=== PATIENT | female | born 1990 ===

== ENCOUNTER 2025-10-13 00:23 | Outpatient (CLI) | payer OTHER, SELFPAY ==
[2025-10-13 13:35] LABS: Abs Immature Grans 0.02 10^3/uL (0.0-0.06); HCT 36.0 % (36.0-46.0); HGB 12.3 g/dL (11.2-15.7); Immature Grans % 0.2 %; MCH 30.1 pg (27.0-33.0); MCHC 34.2 % (32.0-36.0); MCV 88 fL (80-95); MPV 9.2 fL (8.0-11.0); Platelet Count 265 10^3/uL (130-400); RBC 4.08 10^6/uL (3.93-5.22); RDW 13.3 % (11.7-14.6); RDW-SD 43.1 fL; WBC 8.42 10^3/uL (4.4-10.8)
[2025-10-13 23:20] LABS: HIV-1/2 Ag & Ab Screen Negative (Negative)
[2025-10-13 23:21] LABS: Hepatitis C Ab w Rflx HCV PCR Negative (Negative)
[2025-10-16 12:27] LABS: Rubella IgG Ab (UVM) Positive (See Note)
[2025-10-16 12:46] LABS: Syphilis IgG w/Reflex Nonreactive (Nonreactive)
== END 2025-10-13 00:24 | disposition home or self-care (01) ==
LOC: LBO 00:23
PROVIDERS: Visit Provider Advanced Practice Midwife
DX: Z34.91 Encounter for supervision of normal pregnancy, unspecified, first trimester
CPT/HCPCS: 36415; 81220; 81222; 81329; 86787; 86803; 86850; 86900; 86901; 87340; 87389; 85025; 86762; 86777; 86778; 86780; 88271

== ENCOUNTER 2025-10-13 12:38 | Outpatient (REF) | payer OTHER, SELFPAY ==
--- NOTE | 2025-10-13 12:00 | PAPFT_PTH ---
PATIENT: Aziza Jordan LOC: [facility] U#:[id number] AGE/SX: 35/F ROOM: RE10/13/[address]: Judy Santana : 1990 BED: DIS: 10/13/2025 SPEC #: [id number] RECD: 10/13/25 18:33 STATUS: MICAH REQ #: [id number] KEN: 10/13/25 12:[address]: Judy Santana DEPT: [facility] Cytology RECD BY: Rivka Duval ENTERED: 10/13/25 18:33 SP TYPE: PAPFT OTHR DR: Unknown,Unknown Tissues: 1 - CX/ENDOCX FOR PAP SMEARS Procedures: PAP THIN PREP/[facility] Screening HPV DNA PROBE Comments: (HPV 16 & 18/45) (CHLAMYDIA/GC)
[2025-10-16 11:40] LABS: Chlamydia Result Negative (Negative); GC Result Negative (Negative)
== END 2025-10-13 12:39 | disposition home or self-care (01) ==
LOC: LBN 12:38
PROVIDERS: Visit Provider Advanced Practice Midwife
DX: Z34.91 Encounter for supervision of normal pregnancy, unspecified, first trimester (principal); Z12.4 Encounter for screening for malignant neoplasm of cervix
CPT/HCPCS: 87491; 87591; 88142; 87086; 87480; 87510; 87624; 87660